=== PATIENT | female | born 1940 | race Caucasian/White ===

== ENCOUNTER → 2016-08-25 | Outpatient (CLI) | payer MEDICARE ==
[~2016-08-25] MED LIST: ACET-1600 PO; ALBU8.5H3 INH; ASPI325T4 PO; AZEL205. INH; CALC250T PO; CRAN300T PO; D-MA1POW PO; EPIN0.3P3 SC; ESTR42.53 VG; FEXO60TA9 PO; FLUT12AE INH; GABA-826 PO; GLUC1TAB48 PO; GUAI600T22 PO; IBUP200T64 PO; KETO5DRO4 OP; LORA0.5T PO; MULT1TAB11 PO; NAPR220T77 PO; OMEG1CAP46 PO; OMEP-110 PO; OXYC-302 PO; OXYC5CAP4 PO; PSYL0.527 PO; REGADENOSON 0.4 MG/5 ML SYRINGE ONE; SCOP1PAT TD; TRAM50TA2 PO
== END | disposition home or self-care (01) ==
LOC: CFH 09:02
PROVIDERS: ATTEND Nurse Practitioner Family
DX: I25.10 Atherosclerotic heart disease of native coronary artery without angina pectoris (principal); I25.9 Chronic ischemic heart disease, unspecified
CPT/HCPCS: 78452; 93017; A9502; J2785

== ENCOUNTER → 2016-11-28 | Outpatient (CLI) | payer MEDICARE ==
[~2016-11-28] MED LIST changes: -ALBU8.5H3 INH; +ALBU8.5H8 INH; +ASPI325T17 PO; -ASPI325T4 PO; -GUAI600T22 PO; +GUAI600T31 PO; -KETO5DRO4 OP; +KETO5DRO70 OP; +OXYC5CAP2 PO; -OXYC5CAP4 PO; -REGADENOSON 0.4 MG/5 ML SYRINGE ONE
== END | disposition home or self-care (01) ==
LOC: CFH 09:59
PROVIDERS: ATTEND Internal Medicine
DX: Z12.31 Encounter for screening mammogram for malignant neoplasm of breast (principal); N63.10 Unspecified lump in the right breast, unspecified quadrant
CPT/HCPCS: G0202

== ENCOUNTER → 2016-12-07 | Outpatient (CLI) | payer MEDICARE | END | disposition home or self-care (01) | LOC: CFH 12:53 | PROVIDERS: ATTEND Internal Medicine | DX: N63.10 Unspecified lump in the right breast, unspecified quadrant (principal) | CPT/HCPCS: 76641; G0206 ==

== ENCOUNTER 2016-12-25 09:38 | Day surgery (SDC) | payer MEDICARE ==
[~2016-12-25] VITALS: Ht 175.3 cm; Wt 85.6 kg
[2016-12-25] MEDS ORDERED: ATOR20TA9 PO (10:29)
[2016-12-25] MEDS ORDERED: LIDOCAINE 1%, 20ML ONE (10:38)
[2016-12-25 11:27] VITALS: BP 120/75
[2016-12-25] MEDS ORDERED: SCOPOLAMINE 1MG PATCH TD ONE (12:00)
[2016-12-25] MEDS ORDERED: SCOPOLAMINE PATCH, 1.5MG PATCH.TD72 TD ONE (12:00)
[2016-12-25] MEDS ORDERED: LACTATED RINGERS 1,000 ML IV SCH (12:06)
[2016-12-25] MEDS ORDERED: BUPIVACAINE/PF 0.25% ONE (12:44)
[2016-12-25] MEDS ORDERED: FENTANYL PF 100 MCG/2ML ONE ×2 (12:52)
[2016-12-25] MEDS ORDERED: MIDAZOLAM 1 MG/ML, 2ML ONE (12:52)
[2016-12-25] MEDS ORDERED: LIDOCAINE GEL 2%, 5ML ONE (12:53)
[2016-12-25] MEDS ORDERED: PROPOFOL 10 MG/ML, 20ML ONE (12:53)
[2016-12-25] MEDS ORDERED: CEFAZOLIN 1,000 MG ONE ×2 (12:53→12:54)
[2016-12-25] MEDS ORDERED: ROCURONIUM 10 MG/ML ONE (12:53)
[2016-12-25] MEDS ORDERED: ONDANSETRON 2MG/ML, 2ML ONE ×2 (12:54)
[2016-12-25] MEDS ORDERED: SUCCINYLCHOLINE 20 MG/ML, 10ML ONE (12:54)
[2016-12-25] MEDS ORDERED: DEXAMETHASONE 4 MG/ML, 1ML ONE ×2 (12:54)
[2016-12-25] MEDS ORDERED: KETOROLAC 30 MG/1 ML ONE (13:20)
[2016-12-25] MEDS ORDERED: FENTANYL PF 100 MCG/2ML IV PRN (14:00)
[2016-12-25] MEDS ORDERED: PROMETHAZINE 25 MG/ML, 1ML IV PRN (14:00)
[2016-12-25] MEDS ORDERED: HYDROmorphone 1 MG/ML, 1ML IV PRN (14:00)
[2016-12-25] MEDS ORDERED: MIDAZOLAM 1 MG/ML, 2ML IV PRN (14:00)
[2016-12-25] MEDS ORDERED: LABETALOL 5MG/ML, 20ML IV PRN (14:00)
[2016-12-25] MEDS ORDERED: ONDANSETRON 2MG/ML, 2ML IVPush PRN ×2 (14:00→15:00)
[2016-12-25] MEDS ORDERED: hydrALAzine 20 MG/ML, 1ML IV PRN (14:00)
[2016-12-25] MEDS ORDERED: MEPERIDINE/PF 25MG/0.5ML IVPush PRN (14:00)
[2016-12-25] MEDS ORDERED: OXYcodone 5 MG/5 ML ORAL.SOL UDC PO PRN (14:00)
[2016-12-25] MEDS ORDERED: ACETAMINOPHEN 325 MG TABLET PO PRN (14:00)
[2016-12-25] MEDS ORDERED: ALBUTEROL SULFATE 2.5 MG/3 ML NPPB PRN (14:00)
[2016-12-25] MEDS ORDERED: OXYcodone/APAP 5/325MG TABLET PO PRN (15:00)
[2016-12-25] MEDS ORDERED: morphine SULFATE 10 MG/ML, 1ML IVPush PRN (15:00)
[2016-12-25] MEDS ORDERED: OXYcodone IR 5MG TABLET ONE (15:02)
== END 2016-12-25 16:10 ==
LOC: OUT 09:38 → EDSTATUS 14:30 → OUT 16:10
PROVIDERS: ATTEND Surgery
DX: C50.911 Malignant neoplasm of unspecified site of right female breast (principal); J45.909 Unspecified asthma, uncomplicated; E78.5 Hyperlipidemia, unspecified; K21.9 Gastro-esophageal reflux disease without esophagitis; Z98.890 Other specified postprocedural states; Z79.82 Long term (current) use of aspirin
CPT/HCPCS: 19301; 38525; 38792; 88307; 93005; A9541; J0330; J0690; J1100; J1885; J2250; J2405; J2704; J3010; J3490; J7120

== ENCOUNTER → 2017-01-25 | Outpatient (CLI) | payer MEDICARE ==
[~2017-01-25] MED LIST changes: +ATOR20TA9 PO
== END ==
LOC: CFH 10:06
PROVIDERS: ATTEND Specialist
DX: K80.20 Calculus of gallbladder without cholecystitis without obstruction (principal); M41.84 Other forms of scoliosis, thoracic region; C50.911 Malignant neoplasm of unspecified site of right female breast
CPT/HCPCS: 71020; 76700; 78306; A9503

== ENCOUNTER 2017-04-20 00:05 | Observation (INO) | payer MEDICARE ==
[~2017-04-20] VITALS: Ht 175.3 cm; Wt 85.0 kg
[~2017-04-20 00:05] MED LIST changes: -SCOP1PAT TD; +SCOP1PAT11 TD
[2017-04-20] MEDS ORDERED: MECLIZINE CHEWABLE 25 MG TAB PO ONE (03:00)
[2017-04-20] MEDS ORDERED: MECLIZINE CHEWABLE 25 MG TAB ONE ×2 (03:14→08:36)
[2017-04-20 03:23] LABS: BASOPHILS # (AUTO) 0.03 x10^3/uL (0-0.1); BASOPHILS % (AUTO) 1 % (0-1); EOSINOPHILS # (AUTO) 0.08 x10^3/uL (0-0.4); EOSINOPHILS % (AUTO) 1 % (1-7); LYMPHOCYTES # (AUTO) 1.77 x10^3/uL (1-3.4); LYMPHOCYTES % (AUTO) 33 % (22-44); MD NO; MEAN CORPUSCULAR HEMOGLOBIN 31.2 pg (27.0-34.8); MEAN CORPUSCULAR VOLUME 91.9 fL (80-100); MEAN PLATELET VOLUME 8.8 fL (7.4-10.4); MONOCYTES # (AUTO) 0.49 x10^3/uL (0.2-0.8); MONOCYTES % (AUTO) 9 % (2-9); NEUTROPHILS # (AUTO) 3.04 x10^3/uL (1.8-6.8); NEUTROPHILS % (AUTO) 56 % (42-75); PLATELET COUNT 220 x10^3/uL (130-400); RED BLOOD COUNT 4.15 x10^6/uL (3.82-5.3); RED CELL DISTRIBUTION WIDTH 13.3 % (9.6-15.2)
[2017-04-20 03:33] LABS: ALBUMIN 3.8 g/dL (3.4-5.0); ANION GAP 7 mmol/L (5-15); CHLORIDE 108 mmol/L (98-107); CREATININE 1.09 mg/dL (0.55-1.02)
[2017-04-20 03:37] LABS: TROPONIN I < 0.015 ng/mL (0.000-0.045)
[2017-04-20] MEDS ORDERED: D-MA50PO PO (03:40)
[2017-04-20] MEDS ORDERED: ASPI-515 PO (03:40)
[2017-04-20] MEDS ORDERED: OMEP-110 PO (03:40)
[2017-04-20] MEDS ORDERED: ANAS1TAB PO (03:40)
[2017-04-20] MEDS ORDERED: OXYQ113. TP (03:40)
[2017-04-20] MEDS ORDERED: FEXO180T15 PO (03:40)
[2017-04-20] MEDS ORDERED: ASPIRIN 81 MG TABLET CHEW PO ONE (04:30)
[2017-04-20] MEDS ORDERED: ASPIRIN 81 MG TABLET CHEW ONE (05:09)
[2017-04-20] MEDS ORDERED: SODIUM CHLORIDE 0.9% 1,000 ML IV SCH (07:01)
[2017-04-20] MEDS ORDERED: ACETAMINOPHEN 325 MG TABLET PO PRN (07:30)
[2017-04-20] MEDS ORDERED: ONDANSETRON 2MG/ML, 2ML IVPush PRN (07:30)
[2017-04-20] MEDS ORDERED: AZELASTINE HCL INH PRN (07:30)
[2017-04-20] MEDS ORDERED: ALBUTEROL SULFATE 2.5 MG/3 ML NPPB PRN (07:30)
[2017-04-20] MEDS ORDERED: ASPIRIN 81 MG TABLET EC ONE (08:36)
[2017-04-20] MEDS ORDERED: OMEPRAZOLE 20 MG CAPSULE.DR ONE (08:36)
[2017-04-20] MEDS ORDERED: OMEPRAZOLE 20 MG CAPSULE.DR PO SCH (09:00)
[2017-04-20] MEDS ORDERED: ANASTROZOLE 1 MG TABLET PO SCH (09:00)
[2017-04-20] MEDS: MECLIZINE CHEWABLE 25 MG TAB PO SCH ×2 (09:03→15:21)
[2017-04-20] MEDS: ASPIRIN 81 MG TABLET EC PO SCH ×2 (09:03→09:06)
[2017-04-20 13:46] VITALS: BP 109/62
[2017-04-20 14:41] VITALS: BP 109/62
[2017-04-20] MEDS ORDERED: FEXOFENADINE 180 MG HOMEMEDPO PRN (17:00)
[2017-04-20] MEDS ORDERED: MECL-85 PO (19:20)
[2017-04-20] MEDS ORDERED: ATORVASTATIN 20 MG TABLET PO SCH (21:00)
== END 2017-04-20 19:45 | disposition home or self-care (01) ==
LOC: ED 02:58 → OBSVTOIN 04:30 → EDIP 04:30 → INTOOBSV 04:30 → 4EST 12:53
PROVIDERS: ADMIT Hospitalist; ATTEND Hospitalist
DX: R42 Dizziness and giddiness (principal); I95.9 Hypotension, unspecified; E86.9 Volume depletion, unspecified; J45.909 Unspecified asthma, uncomplicated; K21.9 Gastro-esophageal reflux disease without esophagitis; E78.5 Hyperlipidemia, unspecified; Z85.3 Personal history of malignant neoplasm of breast
CPT/HCPCS: 36415; 70450; 70551; 80048; 82040; 84443; 84484; 85025; 93005; 93306; 96360; 96361; 99285; G0378; J7030

== ENCOUNTER → 2017-05-04 | Outpatient (CLI) | payer MEDICARE ==
[~2017-05-04] MED LIST changes: +ANAS1TAB PO; +ASPI-515 PO; +D-MA50PO PO; +FEXO180T15 PO; +MECL-85 PO; +OXYQ113. TP
== END | disposition home or self-care (01) ==
LOC: CFH 15:29
PROVIDERS: ATTEND Nurse Practitioner Primary Care
DX: I65.23 Occlusion and stenosis of bilateral carotid arteries (principal); R53.83 Other fatigue; E78.2 Mixed hyperlipidemia; E88.81 Metabolic syndrome and other insulin resistance; K21.9 Gastro-esophageal reflux disease without esophagitis; I49.8 Other specified cardiac arrhythmias; G89.29 Other chronic pain; R01.1 Cardiac murmur, unspecified; R79.9 Abnormal finding of blood chemistry, unspecified; Z87.448 Personal history of other diseases of urinary system
CPT/HCPCS: 93880

== ENCOUNTER → 2017-07-31 | Outpatient (CLI) | payer MEDICARE ==
[~2017-07-31] MED LIST changes: +LIDOCAINE-MPF 1%, 2ML ONE
== END | disposition home or self-care (01) ==
LOC: RAD 12:28
PROVIDERS: ATTEND Nurse Practitioner Primary Care
DX: E04.1 Nontoxic single thyroid nodule (principal)
CPT/HCPCS: 76942; 88172; 88173; J3490

== ENCOUNTER → 2018-05-30 | Outpatient (CLI) | payer MEDICARE ==
[~2018-05-30] MED LIST changes: +ATOR20TA37 PO; -ATOR20TA9 PO; -LIDOCAINE-MPF 1%, 2ML ONE
== END | disposition home or self-care (01) ==
LOC: CFH 14:01
PROVIDERS: ATTEND Surgery
DX: N64.89 Other specified disorders of breast (principal); Z85.3 Personal history of malignant neoplasm of breast
CPT/HCPCS: 77065

== ENCOUNTER 2018-07-18 12:31 | Outpatient (CLI) | payer MEDICARE ==
[2018-07-18] MEDS ORDERED: FLUT50BL INH (13:34)
[2018-07-18] MEDS ORDERED: CARB15DR3 EACHEYE (13:34)
[2018-07-18] MEDS ORDERED: PSYL1POW PO (13:34)
[2018-07-18] MEDS ORDERED: CRAN500T2 PO (13:34)
[2018-07-18] MEDS ORDERED: LEVO25TA2 PO (13:34)
[2018-07-18] MEDS ORDERED: CHOL200024 PO (13:34)
[2018-07-18] MEDS ORDERED: CALC1TAB PO (13:34)
[2018-07-18] MEDS ORDERED: ACYCLOVIR 5% TP (13:34)
[2018-07-18] MEDS ORDERED: CENTRUM SILVER 50+ PO (13:34)
== END 2018-07-18 23:59 | disposition home or self-care (01) ==
LOC: STAR 12:31
PROVIDERS: ATTEND Obstetrics & Gynecology Female Pelvic Medicine and Reconstructive Surgery
DX: R94.31 Abnormal electrocardiogram [ECG] [EKG] (principal); N84.0 Polyp of corpus uteri; R10.2 Pelvic and perineal pain
CPT/HCPCS: 93005

== ENCOUNTER → 2019-01-17 | Outpatient (CLI) | payer MEDICARE ==
[~2019-01-17] MED LIST changes: +ACYCLOVIR 5% TP; +CALC1TAB PO; +CARB15DR3 EACHEYE; +CENTRUM SILVER 50+ PO; +CHOL200024 PO; +CRAN500T2 PO; +FLUT50BL INH; +LEVO25TA2 PO; +PSYL1POW PO
== END | disposition home or self-care (01) ==
LOC: CFH 12:35
PROVIDERS: ATTEND Surgery
DX: Z08 Encounter for follow-up examination after completed treatment for malignant neoplasm (principal); Z85.3 Personal history of malignant neoplasm of breast
CPT/HCPCS: 77066

== ENCOUNTER → 2019-07-03 | Outpatient (CLI) | payer MEDICARE | END | disposition home or self-care (01) | LOC: CFH 11:53 | PROVIDERS: ATTEND Internal Medicine | DX: M51.34 Other intervertebral disc degeneration, thoracic region (principal); M48.04 Spinal stenosis, thoracic region; M41.84 Other forms of scoliosis, thoracic region | CPT/HCPCS: 72072 ==

== ENCOUNTER 2019-11-12 10:34 | Outpatient (CLI) | payer MEDICARE | END 2019-11-12 23:59 | disposition home or self-care (01) | LOC: RAD 10:34 | PROVIDERS: ATTEND Internal Medicine | DX: M19.041 Primary osteoarthritis, right hand (principal); M19.042 Primary osteoarthritis, left hand ==

== ENCOUNTER → 2020-01-13 | Outpatient (CLI) | payer MEDICARE | END | disposition home or self-care (01) | LOC: CFH 10:48 | PROVIDERS: ATTEND Internal Medicine | DX: C50.411 Malignant neoplasm of upper-outer quadrant of right female breast (principal); M81.0 Age-related osteoporosis without current pathological fracture; Z79.899 Other long term (current) drug therapy | CPT/HCPCS: 77080 ==

== ENCOUNTER → 2020-01-20 | Outpatient (CLI) | payer MEDICARE | END | disposition home or self-care (01) | LOC: CFH 12:03 | PROVIDERS: ATTEND Surgery | DX: Z85.3 Personal history of malignant neoplasm of breast (principal) | CPT/HCPCS: 77066; G0279 ==